=== PATIENT | female | born 1980 | race Caucasian/White ===

== ENCOUNTER 2019-11-30 16:35 | Emergency (ER) | payer OTHER, SELFPAY ==
[2019-11-30 16:55] VITALS: BP 109/68; PULSE 74; RESP 18; TEMP 37.1; O2SAT 98
--- NOTE | 2019-11-30 17:03 | ED.SKABFB ---
HPI - Skin/Abscess/Foreign Bdy General Chief complaint: Skin/Abscess/Foreign Body Stated complaint: sore on r/arm Time Seen by Provider: 11/30/19 16:53 Source: patient and RN notes reviewed Mode of arrival: ambulatory Limitations: no limitations History of Present Illness HPI narrative: Patient presents today complaining of a lump to her right forearm x3 months. Reports intermittent pain, and pain occasionally radiates to the forearm and wrist. Injury. Denies numbness or tingling in the arm or hand. She has tried no [id number] interventions for symptoms prior to arrival. complaint: lesion Related Data Allergies Allergy/AdvReac Type Severity Reaction Status Date / Time codeine Allergy Mild Nausea and Unverified 11/30/19 16:57 Vomiting Review of Systems Review of Systems: Narrative: CONSTITUTIONAL: Denies body aches, fever, chills, or sweats. EYES: Denies visual changes, redness, or discharge. ENT: Denies rhinorrhea, congestion, sore throat, or otalgia. CARDIOVASCULAR: Denies chest pain, palpitations, or edema. RESPIRATORY: Denies cough or dyspnea. GASTROINTESTINAL: Denies abdominal pain, nausea, vomiting, or diarrhea. GENITOURINARY: Denies dysuria or hematuria. SKIN: Denies rash, itching, or wounds. Lump to right forearm MUSCULOSKELETAL: Denies back pain, joint pain, or myalgia. NEUROLOGIC: Denies headache, numbness, tingling, or weakness. PSYCH: Denies depression or anxiety. [facility] Family History Family History (Updated 12/02/16 @ 10:03 by DOCTOR UNKNOWN) Mother Patient's mother is in good health Father Patient's father is in good health Other Diabetes mellitus Family history of cardiovascular disease Hypertension Social History Social History Smoking status: Never smoker Second hand tobacco smoke exposure: No Alcohol intake: current Comments At time of signature, I have reviewed and agree with nursing past medical, surgical, social and family history unless otherwise noted. Please see nursing chart for further information. There is no relevant family history pertinent to the presenting complaint Exam Narrative: Exam Narrative: GENERAL: Well-appearing, well-nourished, and in no acute distress. HEAD: Normocephalic, atraumatic. EYES: EOMI. No redness or drainage. Conjunctivae normal. ENT: Mucous membranes pink and moist. NECK: Normal AROM. CHEST: No respiratory distress. EXTREMITIES: Normal range of motion. No edema. 1cm firm, immovable nodule to the anterior aspect of the right proximal forarm, just distal to the antecubital fossa. No redness or edema. Nontender. Distal sensation intact. Capillary refill normal. No color change. SKIN: Warm, dry, no rash. NEURO: No focal deficits. Alert and oriented x3. Gait steady. PSYCH: Normal affect. No signs of depression or anxiety. Course Course Emergency Course: Discussed with patient that since the area does not seem to be obsessed, but that it is movable and firm, I recommend that she follow-up with either her PCP or hog ringer for further evaluation. Vital Signs Vital signs: Vital Signs Temperature 98.8 F 11/30/19 16:55 Pulse Rate 74 11/30/19 16:55 Respiratory Rate 18 11/30/19 16:55 Blood Pressure 109/68 11/30/19 16:55 Pulse Oximetry 98 11/30/19 16:55 Temperature 98.8 F 11/30/19 16:55 Pulse Rate 74 11/30/19 16:55 Respiratory Rate 18 11/30/19 16:55 Blood Pressure 109/68 11/30/19 16:55 Pulse Oximetry 98 11/30/19 16:55 Reviewed MDM - Skin/Abscess/Foreign Bdy Differential Diagnosis Differential diagnosis: Likely abscess of skin or subcutaneous tissue, cellulitis and other (Epidermoid cyst, lipoma, ganglion cyst, sebaceous cyst) Critical Care Time Critical Care Time Critical Care Time: No Discharge Plan Discharge Clinical Impression: Cyst Patient Disposition: Home, Self-Care Condition: Stable Instructions: Cyst (ED) Additional Instructions: The cause of y
== END 2019-11-30 17:06 | disposition home or self-care (01) ==
PROVIDERS: Emergency Provider Nurse Practitioner; PCP Family Medicine
DX: L72.9 Follicular cyst of the skin and subcutaneous tissue, unspecified (principal); J45.909 Unspecified asthma, uncomplicated
CPT/HCPCS: 99211; G0463

== ENCOUNTER 2020-01-27 11:10 | Outpatient (CLI) | payer OTHER, SELFPAY ==
--- NOTE | ~2020-01-27 | US_ITS ---
US soft tissue UE RT 01/27/2020 12:42 Indication: Localized swelling with palpable soft tissue nodule Procedure: High-resolution ultrasound of the right antecubital fossa Comparison: No prior studies for comparison. Findings: In the area of palpable concern there is an oval circumscribed hypoechoic mass with paralle l orientation, no significant posterior features or internal vascularity. This mass measures 9 x 8 x 6 mm. Impression: 1: Oval circumscribed hypoechoic 9 mm mass right antecubital fossa with benign features, likely a cys t sebaceous cyst. Recommend follow-up ultrasound as clinically warranted. If there is a history of ma lignancy, consider percutaneous biopsy. Reviewed, dictated and finalized at location A. Impression: 1: Oval circumscribed hypoechoic 9 mm mass right antecubital fossa with benign features, likely a cyst sebaceous cyst. Recommend follow-up ultrasound as clini gomez warranted. If there is a history of malignancy, consider percutaneous bio psy.
== END 2020-01-27 11:11 | disposition home or self-care (01) ==
LOC: ANHIMG 11:13
PROVIDERS: PCP Family Medicine; Visit Provider Surgery
DX: R22.31 Localized swelling, mass and lump, right upper limb (principal)
CPT/HCPCS: 76882

== ENCOUNTER 2020-09-18 08:04 | Outpatient (NON) | payer OTHER, SELFPAY ==
[2020-09-18 18:45] LABS: SARS-CoV-2 RNA PCR Negative
== END 2020-09-18 08:05 ==
LOC: ANHCOVIDDT 08:05
PROVIDERS: PCP Family Medicine; Visit Provider Physician Assistant
DX: Z20.828 Contact with and (suspected) exposure to other viral communicable diseases (principal); R05 Cough
CPT/HCPCS: 87635; C9803; U0003

== ENCOUNTER → 2021-05-28 03:02 | Outpatient (CLI) | payer OTHER, SELFPAY ==
[2021-05-28 19:51] LABS: SARS-CoV-2 RNA PCR Negative
== END ==
PROVIDERS: PCP Family Medicine; Visit Provider Obstetrics & Gynecology
DX: Z01.812 Encounter for preprocedural laboratory examination (principal); Z20.822 Contact with and (suspected) exposure to COVID-19
CPT/HCPCS: C9803; U0003; U0005

== ENCOUNTER 2021-05-28 08:31 | Outpatient (CLI) | payer OTHER, SELFPAY ==
[2021-05-28 09:24] LABS: Basophils Absolute Auto 0.1 K/mm3 (0.0-0.1); Basophils Percent Auto 1.1 % (0.2-1.2); Eosinophils Absolute Auto 0.5 K/mm3 (0-0.3); Eosinophils Percent Auto 10.5 % (0-4.4); Hematocrit 31.7 % (37.0-47.0); Hemoglobin 8.9 g/dL (12.0-15.0); Immature Granulocyte Absolute 0.01 K/mm3 (0.00-0.031); Immature Granulocyte Percent A 0.2 % (0-0.5); Immature Platelet Fraction Pct 5.7 % (0.9-11.2); Lymphocytes Absolute Auto 1.45 K/mm3 (0.9-3.2); Lymphocytes Percent Auto 31.6 % (18.3-44.2); Mean Corpuscular HGB Conc 28.1 g/dl (32-36); Mean Corpuscular Hemoglobin 19.3 pg (26-34); Mean Corpuscular Volume 68.9 fl (80-100); Mean Platelet Volume 10.8 fl (7.4-10.4); Monocytes Absolute Auto 0.4 K/mm3 (0.1-0.6); Monocytes Percent Auto 7.8 % (2.6-8.5); Neutrophils Absolute Auto 2.2 K/mm3 (1.3-6.7); Neutrophils Percent Auto 48.8 % (45.5-73.1); Platelet Count Result 288 k/mm3 (150-375); Red Cell Distribution Width 18.1 % (11.5-14.5); White Blood Count 4.6 K/mm3 (4.5-10.0)
== END 2021-05-28 08:32 | disposition home or self-care (01) ==
PROVIDERS: PCP Family Medicine; Visit Provider Obstetrics & Gynecology
DX: N85.2 Hypertrophy of uterus (principal)
CPT/HCPCS: 36415; 85025; 85055; 86850; 86900; 86901

== ENCOUNTER 2021-05-31 00:01 | Day surgery (SDC) | payer OTHER, SELFPAY ==
[2021-05-24 10:17] VITALS: BMI 20.3
--- NOTE | 2021-05-29 07:53 | PM.IMHP ---
H&P: HPI History of Present Illness Date/Time: 05/29/21 07:53 40-year-old 2 para 2 admitted for robotic total vaginal hysterectomy and bilateral salpingectomy secondary to uterine prolapse and large uterus. Risks and benefits reviewed including min exclusive of , aspiration pneumonia bleeding, transfusion, perforation injury to bowel, bladder, ureters, or other internal organs with need for open laparotomy. She received the ACOG handout entitled hysterectomy as well as the de Haley handout. She had all questions answered and asked to proceed Chief Complaint: pelvic pain and uterine prolapse Review of Systems Review of Systems: All systems reviewed & are unremarkable except as noted in HPI and below PMFSH Past Medical History Medical History Asthma Viral meningitis Surgical History Surgical History H/O knee surgery H/O microdiscectomy l5,f1 Family History Family History Mother Patient's mother is in good health Father Patient's father is in good health Skin cancer Sibling Seizure Grandparent Diabetes mellitus COPD (chronic obstructive pulmonary disease) Heart disease Cancer Other Family history of cardiovascular disease Hypertension Social History Social History Smoking status: Never smoker Second hand tobacco smoke exposure: No Alcohol intake: current Substance use: never 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 Spiritual care concerns: No Meds Home Medications and Allergies Home Medications Medication Instructions Recorded Confirmed Type albuterol sulfate 90 mcg/actuation See Rx Instructions .ROUTE 02/12/21 05/24/21 Rx aerosol inhaler .COMPLEX #8.5 gm montelukast [Singulair] 10 mg PO HS 05/24/21 05/24/21 History Allergies Allergy/AdvReac Type Severity Reaction Status Date / Time codeine Allergy Mild Nausea and Verified 05/24/21 10:16 Vomiting Exam Const: General: no acute distress Eyes: General: appearance normal, both eyes and all related structures Neck: Neck: supple and no JVD Thyroid: thyroid normal Resp: Effort & Inspection: normal respiratory effort Auscultation: clear to auscultation bilaterally Cardio: Rate: regular rate Rhythm: regular rhythm GI: Inspection: non-distended GI Palp: Yes Soft to palpation, No Tenderness to palpation present (GI) and No Guarding due to palpation present (GI) Auscultation: normal bowel sounds : External Female Exam: normal external appearance Speculum Exam - Vagina: normal appearance of the vagina Speculum Exam - Cervix: normal appearance of the cervix and Cervical os closed Bimanual exam- vagina & uterus: Uterus displaced ( second-degree prolapse is present) Bimanual Exam- Adnexa, other: normal adnexae Skin: General skin exam: no rashes or lesions noted Extrem: General: normal to inspection and no edema Psych: Mental Status: mental status grossly normal Affect: normal affect Assessment and Plan Additional Plan impression: Uterine prolapse and pelvic pain Plan: Robotic total vaginal hysterectomy and bilateral salpingectomy
--- NOTE | 2021-05-30 10:49 | P.PNAN_ITS ---
Anes - Initial Pre Proc Eval Procedure: Operation Date: 05/31/21 07:30 Proposed Procedures p Robotic Assisted Total Vaginal Hysterectomy, with Bialteral Salpingectomy - Rafael Prado MD Date/Time: 05/30/21 10:49 Surgeon: Rafael Prado MD Pre Op Diagnosis: pelvic pain, irregular bleeding , enlarged uterus Patient Data Age: 40 Gender: F Height: 1.7 m Weight: 59 kg Allergies Allergy/AdvReac Type Severity Reaction Status Date / Time codeine AdvReac Mild Nausea and Verified 05/31/21 06:41 Vomiting Home Medications Medication Instructions Recorded Confirmed Type albuterol sulfate 90 mcg/actuation See Rx Instructions .ROUTE 02/12/21 05/31/21 Rx aerosol inhaler .COMPLEX #8.5 gm montelukast [Singulair] 10 mg PO HS 05/24/21 05/31/21 History Patient hx anesthesia problems: none Family hx anesthesia problems: none PMFSH Past Medical History Medical History Asthma Viral meningitis Surgical History Surgical History H/O knee surgery H/O microdiscectomy l5,f1 Family History Family History Mother Patient's mother is in good health Father Patient's father is in good health Skin cancer Sibling Seizure Grandparent Diabetes mellitus COPD (chronic obstructive pulmonary disease) Heart disease Cancer Other Family history of cardiovascular disease Hypertension Social History Social History Smoking status: Never smoker Second hand tobacco smoke exposure: No Alcohol intake: current Substance use: never Living arrangements: with family 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 Questions were solicited and answers provided to the satisfaction of the patient/family/POA.
[2021-05-31] VITALS (11 sets, daily range): BP systolic 89–113; BP diastolic 45–67; PULSE 58–82; RESP 12–19; TEMP 36.3–37.1; O2SAT 98–100; BMI 21.4
[2021-05-31] MEDS: ACETAMINOPHEN 500 MG TABLET 1000 MG PO (06:54)
[2021-05-31] MEDS: LACTATED RINGERS 1,000 ML 30 ML IV CONT ×2 (06:54→08:47)
[2021-05-31] MEDS: KETOROLAC 15 MG/ML VIAL (*BKC) IV PUSH (06:54)
--- NOTE | 2021-05-31 07:08 | WPDHPUPDATE1 ---
History and Physical Update Update Date/Time: 05/31/21 07:08 History and Physical has been reviewed, including an updated exam of the patient. There are NO changes in the patient's condition. Risks, benefits, and alternatives have been discussed and questions answered. Patient agrees to proceed with procedure.
[2021-05-31] MEDS: ceFAZolin 2 GM/D5W 50 ML 2 GM/50 ML BAG IVPB (07:27)
--- NOTE | 2021-05-31 08:39 | W.PM.PROC2 ---
Procedure Note - Detailed Date of Procedure 05/31/21 Pre-op Diagnosis pelvic pain, irregular bleeding , enlarged uterus Post-op Diagnosis same Procedure Performed Robotic total vaginal hysterectomy bilateral salpingectomy Surgeon Rafael Prado MD Anesthesia general Indications This is a 40 year female uterine prolapse enlarged uterus Findings Uterine prolapse/enlarged uterus/normal-appearing ovaries tubes. A small irregularity was seen the small and photo documented. No general surgeon was present and will be curb sided to look at the picture when available Description of Procedure The patient was prepped draped in the normal sterile fashion placed in the dorsal lithotomy position. Under excellent general endotracheal anesthesia weighted speculum placed in posterior fornix vagina. Anterior lip of the cervix was grasped with a single-tooth tenaculum the uterus sounded to 10cm. Serial dilatation with fragmented dilators performed followed passes the 8. ANGEL and the 3. And half cold cup. Next the 16 [place] catheter bladder and drained of clear urine. The weighted speculum and the other instruments removed and the gloves were changed. A supraumbilical incision made the Veress needle passed in the abdomen. The abdomen filled with CO2 gas 15mmmmmercury. The 8mm trocar advanced in the abdomen. The downside visualized no injury seen. Patient placed in Trendelenburg and right lateral quadrant incisions made the 8mm trocars advanced under direct visualization assuring no injury. Right upper quadrant incision made the 8 8mm trocar advanced under direct visualization again assuring no injury. The robot was docked Attention was turned to the corporate counsel. The round ligament on the left was grasped, burned, cut anterior bladder flap was formed by sharply dissecting the peritoneum and reflecting the bladder caudally away from the cervix and uterus the opposite round ligament was clamped, burned, cut. Next the left fallopian tube was sharply dissected away from the ovary and left at its uterine base to be removed with the specimen. In like fashion the right fallopian tube was cauterized and dissected away and left to the uterine base. Next the utero-ovarian ligament on the left was clamped, burned, cut this was brought to the level of previously cut round ligament. This conserve the left ovary. Conserving the right ovary the utero-ovarian ligament was clamped, burned, cut and brought to the level of previous cut round ligament. The cardinal broad ligaments on the left were then serially skeletonized they were clamped burned and cut and brought down the lateral edge of the cervix until the large tortuous uterine vessels could be seen. These were individually clamped, burned, cut. In like fashion the cardinal broad ligaments on the right were serially skeletonized. These were clamped, burned, cut and brought down the lateral edge of the cervix and uterus until uterine vessels could be seen on the right. These large tortuous vessels were individually clamped, burned, cut and blanching the uterus was noted. A colpotomy incision was made in the cervix uterus and tubes removed through the vagina. The vagina was closed with continuous running 0V lock from lateral edge to lateral edge back to the midline. Irrigation undertaken to clear blood loss estimated at25cc. Spencer term was placed on the raw surface area it was noted on the small bowel that there was a small excrescence excrescence that appeared fairly benign attempts were made to reach general surgeon but none were available. Photo documentation was undertaken and curbside consult will be undertaken. The gas was removed from the abdomen. The trocars were removed after the robot was undocked. The incisions closed with 4 Monocryl and glue. The patient went to recovery in satisfactory condition. All sponge, needle, instrument counts were correct. There were no immediate complications Estimated Blood Loss
[2021-05-31] MEDS: fentaNYL CITRATE INJ (*CRX) 100 MCG/2 ML VIAL 25 MCG IV PUSH ×6 (08:58→09:19)
[2021-05-31] MEDS: HYDROmorphone HCL INJ (*CRX) 1 MG/ML SYR 0.5 MG IV PUSH ×2 (09:27→09:34)
[2021-05-31] MEDS: DEXTROSE 5%/LACTATED RINGERS 1,000 ML 125 ML IV CONT (10:21)
[2021-05-31] MEDS: KETOROLAC 30 MG/ML VIAL (*BKC) IV PUSH ×3 (11:20→23:28)
[2021-05-31] MEDS: ENOXAPARIN 40 MG/0.4 ML SYRINGE SUB-Q (11:21)
[2021-05-31] MEDS: HYDROcodone/acetaminophen (*CRX) 5-325 MG TABLET 1 TAB PO ×3 (13:26→20:42)
[2021-05-31] MEDS: DOCUSATE SODIUM 100 MG CAPSULE PO (16:30)
[2021-05-31] MEDS: SIMETHICONE 80 MG TAB.CHEW PO ×2 (16:31→20:42)
--- NOTE | 2021-05-31 23:25 | PC.NURSE ---
Per patient she took 2 puffs of her own Albuterol inhaler for allergies.
[2021-06-01 00:10] VITALS: BP 92/51; PULSE 72; RESP 16; O2SAT 100
[2021-06-01 03:50] VITALS: BP 92/53; PULSE 64; RESP 16; TEMP 36.7; O2SAT 99
[2021-06-01 04:46] LABS: Basophils Percent Auto 0.4 % (0.2-1.2); Eosinophils Absolute Auto 0.2 K/mm3 (0-0.3); Eosinophils Percent Auto 2.8 % (0-4.4); Hematocrit 26.6 % (37.0-47.0); Hemoglobin 7.4 g/dL (12.0-15.0); Immature Granulocyte Absolute 0.03 K/mm3 (0.00-0.031); Immature Granulocyte Percent A 0.4 % (0-0.5); Lymphocytes Absolute Auto 1.54 K/mm3 (0.9-3.2); Lymphocytes Percent Auto 18.6 % (18.3-44.2); Mean Corpuscular HGB Conc 27.8 g/dl (32-36); Mean Corpuscular Hemoglobin 19.5 pg (26-34); Mean Platelet Volume 11.4 fl (7.4-10.4); Monocytes Absolute Auto 0.7 K/mm3 (0.1-0.6); Monocytes Percent Auto 8.7 % (2.6-8.5); Neutrophils Absolute Auto 5.8 K/mm3 (1.3-6.7); Neutrophils Percent Auto 69.1 % (45.5-73.1); Platelet Count Result 229 k/mm3 (150-375); Red Cell Distribution Width 17.9 % (11.5-14.5); White Blood Count 8.3 K/mm3 (4.5-10.0)
[2021-06-01] MEDS: IBUPROFEN 600 MG TABLET PO (05:35)
--- NOTE | 2021-06-01 07:05 | P.DS_ITS ---
DS: Admitting Diagnosis Discharge Date 06/01/2021 Admitting Diagnosis Pelvic pain/ uterine prolapse DS: Summary Hospital Course Hospital Course: patient admitted for robotic total vaginal hysterectomy bilateral salpingectomy. She underwent an unremarkable procedure. Hospital course was unremarkable. She remained afebrile. She was up, voiding without difficulty ambulating generally without complaints Time Spent with Patient Time attestation: Total time spent providing and/or coordinating discharge services: Exam Const: General: no acute distress Eyes: General: appearance normal, both eyes and all related structures Neck: Neck: supple and no JVD Thyroid: thyroid normal Resp: Effort & Inspection: normal respiratory effort Auscultation: clear to auscultation bilaterally Cardio: Rate: regular rate Rhythm: regular rhythm GI: Inspection: non-distended GI Palp: Yes Soft to palpation, No Tenderness to palpation present (GI) and No Guarding due to palpation present (GI) Auscultation: normal bowel sounds Skin: General skin exam: no rashes or lesions noted Extrem: General: normal to inspection and no edema Psych: Mental Status: mental status grossly normal Affect: normal affect DS: Data Data Completed and Pending Pending studies at discharge: Pending at discharge 05/31/21 08:01 Surgical [PTH] Routine Labs on day of discharge: Labs from last 24 hours 06/01/21 03:51 WBC 8.3 RBC 3.80 L Hgb 7.4 L Hct 26.6 L MCV 70.0 L MCH 19.5 L MCHC 27.8 L RDW 17.9 H Plt Count 229 MPV 11.4 H Immature Gran % (Auto) 0.4 Neut % (Auto) 69.1 Lymph % (Auto) 18.6 [place] % (Auto) 8.7 H Eos % (Auto) 2.8 Baso % (Auto) 0.4 Lymph # (Auto) 1.54 [place] # (Auto) 0.7 H Eos # (Auto) 0.2 Baso # (Auto) 0.0 Abs Immat Gran (auto) 0.03 Absolute Neuts (auto) 5.8 Absolute Nucleated RBC 0.0 Nucleated RBC % 0.0 Discharge Plan Discharge Attending physician on discharge: Rafael Prado Discharging Clinician: Rafael Prado Patient Disposition: Home, Self-Care Activity: may shower, no straining and pelvic rest Diet: heart healthy Wound Care Instructions: follow printed instructions Stand Alone Forms: General Discharge Instructions Follow-up/Referrals: Rafael Prado MD [Physician] - Discharge Medications: New hydrocodone-acetaminophen 5-325 mg tablet 1 tablet PO Q4H PRN (Reason: pain) Qty: 30 RF: 0 Continued montelukast [Singulair] 10 mg tablet 10 mg PO HS RF: 0 albuterol sulfate 90 mcg/actuation HFA aerosol inhaler See Rx Instructions .ROUTE .COMPLEX Qty: 8.5 RF: 5 Attending physician on admission: Rafael Prado Condition: Stable
--- NOTE | 2021-06-01 07:08 | PM.GYNPNOP ---
INFORMATICS SPECIALIST - A/P Postoperative Procedures: Procedures Operation Date: 05/31/21 07:30 Actual Procedure Side Surgeon p Robotic Assisted Total Vaginal Hysterectomy with Bilateral Salpingectomy Bilateral Rafael Prado MD Postoperative status: doing well Postoperative plan: routine post-op care, advance diet and discharge Time Spent With Patient Time: Total time spent is greater than 50% in coordination of care (as documented) at patient's floor/unit and/or counseling patient: Time with patient: less than 15 minutes INFORMATICS SPECIALIST- PN:Subj Post-Op Subjective Date/time seen: 06/01/21 07:08 Subjective: patient reports feeling better and patient has no complaints Review of Systems Review of Systems: All systems reviewed & are unremarkable except as noted in HPI and below Exam Const: General: no acute distress Eyes: General: appearance normal, both eyes and all related structures Neck: Neck: supple and no JVD Thyroid: thyroid normal Resp: Effort & Inspection: normal respiratory effort Auscultation: clear to auscultation bilaterally Cardio: Rate: regular rate Rhythm: regular rhythm GI: Inspection: non-distended GI Palp: Yes Soft to palpation, No Tenderness to palpation present (GI) and No Guarding due to palpation present (GI) Auscultation: normal bowel sounds : General: Yes bladder normal to palpation External Female Exam: normal external appearance Speculum Exam - Vagina: normal vaginal discharge and No vaginal bleeding Speculum Exam - Cervix: nontender Bimanual exam- vagina & uterus: bladder normal to palpation and No Cervical tenderness present OB/external & speculum: No vaginal bleeding Skin: General skin exam: no rashes or lesions noted Extrem: General: normal to inspection and no edema Psych: Mental Status: mental status grossly normal Affect: normal affect INFORMATICS SPECIALIST - PN: Obj Data Vital Signs Vital Signs: Vital Signs - 24 hr 05/31/21 08:47 05/31/21 09:00 05/31/21 09:15 Temperature 97.4 F L Pulse Rate 79 73 61 Respiratory Rate 19 14 12 Blood Pressure 113/52 L 100/45 L 108/57 L Pulse Oximetry 100 100 100 05/31/21 09:35 05/31/21 09:49 05/31/21 10:05 Temperature 97.5 F L Pulse Rate 58 L 66 72 Respiratory Rate 12 14 16 Blood Pressure 111/67 104/63 109/56 L Pulse Oximetry 99 100 98 05/31/21 12:37 09/10/21 15:45 05/31/21 18:30 Temperature 98.2 F 98.7 F 98.8 F Pulse Rate 64 69 75 Respiratory Rate 16 16 16 Blood Pressure 109/61 105/51 L 94/45 L Pulse Oximetry 100 100 99 05/31/21 23:15 06/01/21 00:10 06/01/21 03:50 Temperature 98.2 F 98.0 F Pulse Rate 69 72 64 Respiratory Rate 18 16 16 Blood Pressure 89/49 L 92/51 L 92/53 L Pulse Oximetry 99 100 99 Intake/Output Intake/Output: Intake & Output 05/29/21 05/30/21 05/31/21 06/01/21 23:59 23:59 23:59 23:59 Intake Total 2400 400 Output Total 1965 500 Balance 435 -100 Meds/Results Medications: Active Medications Generic Name Dose Route Start Last Admin Trade Name Freq PRN Reason Stop Dose Admin Hydrocodone Bitart/Acetaminophen 1 tab 05/31/21 09:53 05/31/21 20:42 Hydrocodone/Acetaminophen (*Crx) 5-325 Mg Tablet PO 1 tab Q3H PRN Administration Pain Rated 5 or Less Hydrocodone Bitart/Acetaminophen 1 tab 05/31/21 09:53 Hydrocodone/Acetaminophen (*Crx) 10-325 Mg Tablet PO Q3H PRN Pain Rated 6 or Greater Docusate Sodium 100 mg 05/31/21 09:53 05/31/21 17:54 Docusate Sodium 100 Mg Capsule PO Not Given BID PATRICE Enoxaparin Sodium 40 mg 05/31/21 09:53 05/31/21 11:21 Enoxaparin 40 Mg/0.4 Ml Syringe SUB-Q 40 mg DAILY PATRICE Administration Dextrose/Lactated Ringer's 1,000 mls @ 125 mls/hr 05/31/21 09:53 05/31/21 18:30 Dextrose 5%/Lactated Ringers IV CONT Infused .Q8H PATRICE Infusion Ibuprofen 600 mg 05/31/21 09:53 06/01/21 05:35 Ibuprofen 600 Mg Tablet PO 600 mg Q6H PRN Administration Cramping Ketorolac Tromethamine 30 mg 05/31/21 09:53 05/31/21 23:28
[2021-06-01] MEDS: SIMETHICONE 80 MG TAB.CHEW PO (07:36)
[2021-06-01 07:46] VITALS: BP 82/42; PULSE 71; RESP 18; TEMP 36.8
[2021-06-01] MEDS: HYDROcodone/acetaminophen (*CRX) 5-325 MG TABLET 1 TAB PO (09:27)
== END 2021-06-01 09:45 | disposition home or self-care (01) ==
LOC: ANHSURGERY 06:05 → ANHOB2 09:55
PROVIDERS: PCP Family Medicine; Visit Provider Obstetrics & Gynecology
PROC: (CPT 58552; principal; 2021-05-31 07:30)
DX: R10.2 Pelvic and perineal pain (principal); N81.2 Incomplete uterovaginal prolapse; N93.9 Abnormal uterine and vaginal bleeding, unspecified; J45.909 Unspecified asthma, uncomplicated; Z79.51 Long term (current) use of inhaled steroids; Z86.61 Personal history of infections of the central nervous system
CPT/HCPCS: 58552; S2900; 36415; 85025; 85055; 86850; 86900; 86901; 88307; 99199; A9270; C9803; J0690; J1100; J1170; J1650; J1885; J2250; J2405; J2704; J2710; J3010; J7030; J7120; J7121; U0003; U0005

== ENCOUNTER 2024-11-20 06:53 | Emergency (ER) | payer OTHER, SELFPAY ==
[2024-11-20 06:57] VITALS: BP 125/85; PULSE 78; RESP 18; TEMP 36.6; O2SAT 98
--- NOTE | 2024-11-20 07:15 | ED.GENADULT ---
HPI - General Adult General Chief complaint: Headache Stated complaint: headache since 0200 Time Seen by Provider: 11/20/24 06:57 History of Present Illness HPI narrative: Patient is a 44-year-old female who presents ER with headache. Began at 2:00 a.m.. History of migraines. Constant pressure over the forehead it radiating to the back. Typically her headache waxes and wanes in intensity and this is not improving. She took neuro tach without improvement. She has had vomiting with urinary incontinence. No urinary frequency urgency or dysuria. No body aches. No fevers or chills or sweats. No known sick contacts. She had 1 glass of wine last night. Unable to identify any other possible triggers. Related Data Allergies Allergy/AdvReac Type Severity Reaction Status Date / Time codeine AdvReac Mild Nausea and Verified 11/20/24 06:57 Vomiting surgical glue Allergy Severe Hives Uncoded 10/05/24 09:13 Review of Systems Review of Systems: All systems reviewed & are unremarkable except as noted in HPI and below Constitutional: Constitutional: Reports no additional constitutional complaints Eyes: Eyes: Reports no additional eye complaints ENT: Reports system reviewed and no additional complaints, except as documented Genitourinary: Genitourinary: Reports no additional female genitourinary complaints [facility] Past Medical History Medical History Upper respiratory tract infection Mild intermittent asthma without complication Epigastric pain Chronic rhinitis Chronic constipation Viral meningitis Asthma Surgical History Surgical History H/O bilateral salpingectomy History of robot-assisted laparoscopic hysterectomy H/O knee surgery H/O microdiscectomy l5,f1 Family History Family History Mother Patient's mother is in good health Father Patient's father is in good health Skin cancer Sibling Seizure Grandparent Diabetes mellitus COPD (chronic obstructive pulmonary disease) Heart disease Cancer Other Family history of cardiovascular disease Hypertension Social History Social History Smoking status: Never smoker Second hand tobacco smoke exposure: No Alcohol intake: current Substance use: never Lack of Transportation: No Lack of Food: Never True Current Housing: I Have Housing Concerned About Future Housing: No Difficulty Paying Gas/Electric Bills: No Difficulty Paying for Meds: No Currently Unemployed: No Education: Associate Degree Difficulty w/ Childcare or Family Care: No Living arrangements: with family Occupation/Education: 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 HEAD: Normocephalic, atraumatic. EYES: PERRL and EOMI. ENT: Mucous membranes moist. CHEST: Clear to auscultation. No respiratory distress. HEART: Regular rate and rhythm. Normal peripheral pulses. ABDOMEN: Soft, nontender, nondistended. EXTREMITIES: Normal range of motion. No edema. NEURO: Alert and oriented x3. PSYCH: Normal mood and affect. Course Course Emergency Course: Headache aborted with IV fluids/Reglan/Benadryl/Toradol. Discharge home with supportive care. Vital Signs Vital signs: Vital Signs Temperature 97.8 F 11/20/24 06:57 Pulse Rate 78 11/20/24 06:57 Respiratory Rate 18 11/20/24 06:57 Blood Pressure 125/85 11/20/24 06:57 Pulse Oximetry 98 11/20/24 06:57 Temperature 97.9 F 11/20/24 08:00 Pulse Rate 72 11/20/24 08:00 Respiratory Rate 16 11/20/24 08:00 Blood Pressure 116/61 11/20/24 08:00 Pulse Oximetry 100 11/20/24 08:00 Medical Decision Making Vital Signs Vital Signs: Vital Signs Temperature 97.8 F 11/20/24 06:57 Pulse Rate 78 11/20/24 06:57 Respiratory Rate 18 11/20/24 06:57 Blood Pressure 125/85 11/20/24 06:57 Pulse Oximetry 98 11/20/24 06:57 Temperature 97.9 F 11/20/24 08:00 Pulse Rate 72 11/20/24 08:00 Respiratory Rate 16 11/20/24 08:00 Blood Pressure 116/61 11/20/24 08:00 Pulse Oximetry 100 11/20/24 08:00 Discharge Plan Discharge Clinical Impression: Migraine Patient Disposition: Home, Self-Care Condition: Stable Instructions: Migraine Headache (ED) Additional Instructions: Try to stay well hydrated at home. Please return to the emergency department if you develop worsening of your headache or a new headache which is severe, associated with vision changes, associated with neck stiffness or fever, or if it is different from any other headache that you have had before. Return to the emergency department if you develop numbness, weakness or tingling or problems with coordination, or if you develop severe nausea and vomiting and are unable to keep down fluids at home. If you use Reglan for a migraine add 1 tablet of 25 mg Benadryl as well as 600 mg of ibuprofen. Patient Language: Costa Rican Prescriptions: New metoclopramide HCl [Reglan] 10 mg tablet 10 mg PO Q6H PRN (Reason: nausea and vomiting) Qty: 7 0RF No Action fluticasone furoate-vilanterol [Breo Ellipta] 100-25 mcg/dose blister with device 1 inh inhalation DAILY Qty: 60 0RF albuterol sulfate 90 mcg/actuation HFA aerosol inhaler See Rx Instructions .ROUTE .COMPLEX Qty: 8.5 5RF Dose Instruction: INHALE 1 PUFF BY MOUTH EVERY 4 HOURS NEEDED Rx Instructions: INHALE 1 PUFF BY MOUTH EVERY 4 HOURS NEEDED Nurtec ODT 75 mg tablet,disintegrating 75 mg PO DAILY PRN (Reason: migraine headache) Qty: 10 6RF Rx Instructions: as a single dose Follow-up/Referrals: Pamela Moulton MD [Primary Care Provider] - 1 Week
[2024-11-20] MEDS: SODIUM CHLORIDE 0.9% IV 1,000 ML 999 ML IV CONT (07:24)
[2024-11-20] MEDS: KETOROLAC 30 MG/ML VIAL (*BKC) IV PUSH (07:25)
[2024-11-20] MEDS: diphenhydrAMINE HCl INJ 50 MG/ML VIAL 25 MG IV PUSH (07:25)
[2024-11-20] MEDS: METOCLOPRAMIDE HCL INJ 10 MG/2 ML VIAL IV PUSH (07:25)
[2024-11-20 08:00] VITALS: BP 116/61; PULSE 72; RESP 16; TEMP 36.6; O2SAT 100
[2024-11-20 09:00] VITALS: BP 118/78; PULSE 70; RESP 16; TEMP 36.4; O2SAT 100
[2024-11-20 09:35] VITALS: BP 112/68; PULSE 70; RESP 16; TEMP 36.6; O2SAT 100
== END 2024-11-20 09:35 | disposition home or self-care (01) ==
PROVIDERS: Emergency Provider Emergency Medicine; PCP Family Medicine
DX: G43.909 Migraine, unspecified, not intractable, without status migrainosus (principal); J45.20 Mild intermittent asthma, uncomplicated; Z90.79 Acquired absence of other genital organ(s); Z90.710 Acquired absence of both cervix and uterus
CPT/HCPCS: 96361; 96374; 96375; 99284; J1200; J1885; J2765; J7030

== ENCOUNTER 2024-12-04 13:37 | Emergency (ER) | payer OTHER, SELFPAY ==
--- NOTE | ~2024-12-04 | XR_ITS ---
XR toe 1st LT min 2V Ordering provider: SHANNA Feliciano History: . dropped bottle of wine on 1st toe last night. . Comparison: None. FINDINGS: BONES: Nondisplaced fracture of the midshaft of the distal phalanx of the left big toe. JOINT SPACES: Normal. SOFT TISSUES: Normal. IMPRESSION: Fracture of the distal phalanx of the left big toe. Reviewed, dictated and finalized at location A.
--- OUTSIDE RECORDS SUMMARY | 2024-12-04 13:39 | XMS_ITS ---
Author Organization [facility] Address [address] [place] [address] Care Team Providers Care Cut Off Saw Operator Name Role Phone Pamela Moulton Primary Care Provider Carlotta Gallegos Unavailable [phone] REASON FOR VISIT Asthma follow-up Encounters Encounter Location Date Provider Diagnosis [facility] [address] [facility] [address] [place] [address] 09/28/2024 Carlotta Thrasher Plan Of Treatment Next Appt Details Provider Name:Carlotta baptiste, 01/25/2025 04:00:00 PM, [facility] [address], [place], [address], Progress Notes * Mami ANNE ADOB: [birth year] (44 yo F)Acc No.[id number]:09/28/2024 Asthma F/U Patient: Clementina Mami VILLARREAL Provider: India Thrasher MD :1980 A ge:44 Y S ex:Female Date:09/28/2024 Address:[address] [place] [address] [place], [id number] Pcp:Pamela Moulton Subjective: * Chief Complaints: * 1 . Asthma follow-up. * Medical History: Objective: * Vitals: Assessment: Plan: * Treatment: * Billing Information: * Visit Code: * Procedure Codes: * Electronic signature of Alana Thrasher MD on 12/04/2024 at 01:39 PM CDT Sign off status: Pending * Provider: India Thrasher MD Date: 0 09/28/2024 Generated for Serena ramirez/Ruby/Lester on: 0 12/04/2024 01:39 PM CDT
--- OUTSIDE RECORDS SUMMARY | 2024-12-04 13:39 | XMS_ITS | Patient Health Summary ---
Author Organization [facility] Address [address] [place] [address] Care Team Providers Care Director Of Business Continuity Name Role Phone Pamela Moulton MD Primary Care Provider [phone] Note from [facility],non-owned Affiliates and Associated Physician Practices is amultiple site organization consisting of ambulatory clinics and hospital sitesin [place], [place], [place] and [place]. This disclosure is being madepursuant to the Care Everywhere program and may not contain all information available regarding this patient. Last updated 18.[facility] Allergies * Codeine(Nausea and/or Vomiting) Medications * Be aware that medications may not be up to date on this document. Alwaysverify current medications with the patient. * albuterol HFA (PROAIR HFA) 108 (90 BASE) MCG/ACT inhaler(Started 07/21/2016) Inhale 2 Puffs by mouth every 4 hours as needed for Shortness of Breath, Wheezing or Cough 1 refill remaining * fluticasone furoate (ARNUITY ELLIPTA) 100 MCG/ACT inhaler Inhale 1 puff by mouth once daily Active Problems No known active problems Social History Tobacco Use Types Packs/Day Years Used Date Smoking Tobacco: Never Smokeless Tobacco: Never Sex and Gender Information Value Date Recorded Sex Assigned at Not on file Gender Identity Not on file Sexual Orientation Not on file Last Filed Vital Signs Vital Sign Reading Time Taken Comments Blood Pressure 102/70 12/30/2017 5:12 PM CDT Pulse 72 12/30/2017 5:12 PM CDT Temperature 36.6 C (97.9 F) 12/30/2017 5:12 PM CDT Respiratory Rate 14 12/30/2017 5:12 PM CDT Oxygen Saturation 99% 12/30/2017 5:12 PM CDT Inhaled Oxygen Concentration - - Weight 60.3 kg (133 lb) 12/30/2017 5:12 PM CDT Height 170.2 cm (5' 7 ) 12/30/2017 5:12 PM CDT Body Mass Index 20.83 12/30/2017 5:12 PM CDT Procedures * STREP A SCREEN - POINT OF CARE (AMB) STL(Performed 10/15/2017) Performed for Strep pharyngitis * INFLUENZA A+B - POINT OF CARE (AMB)(Performed 10/15/2017) Performed for Strep pharyngitis * STREP A SCREEN - POINT OF CARE (AMB) STL(Performed 07/21/2016) Performed for Acute pharyngitis, unspecified etiology Results * (ABNORMAL) STREP A SCREEN (10/15/2017) Only the most recent of2 resultswithin the time period is included. Strep A Rapid POCT Positive(A) Negative Strep A Internal Control Present Lot # [id number] Expiration Date [id number] Throat ENTIRE THROAT (SURFACE REGION OF NECK) / Unknown 10/15/2017 Eric Jaramillo APRN-[facility] - POINT OF CARE ORDERABLES * INFLUENZA A+B - POINT OF CARE (AMB) (10/15/2017) Influenza A Antigen Rapid Negative Negative Influenza B Antigen Rapid Negative Negative Influenza Internal Control present NEGATIVE - POSITIVE Influenza Lot Number [id number] Influenza Expiration Date Other NASOPHARYNGEAL SWAB / Unknown 10/15/2017 Eric Jaramillo RETAIL OFFICE MANAGER-MARKETING CLERK LAB - POINT OF CARE ORDERABLES Care Teams Director Of Business Continuity Relationship Specialty Start Date End Date Pamela Moulton MD [address] [place] [address] PCP - General Family Medicine 06/13/16
--- OUTSIDE RECORDS SUMMARY | 2024-12-04 13:39 | XMS_ITS | Clinical Summary ---
Author Organization [facility] Address [address] [place] [address] Care Team Providers Care 911 Emergency Dispatcher Name Role Phone Pamela Moulton MD Primary Care Provider [phone] Source Comments [facility],non-owned Affiliates and Associated Physician Practices is amultiple site organization consisting of ambulatory clinics and hospital sitesin [place], [place], [place] and [place]. This disclosure is being madepursuant to the Care Everywhere program and may not contain all information available regarding this patient. Last updated 18.[facility] Allergies Active Allergy Reactions Criticality Noted Date Comments Codeine Nausea and/or Vomiting 06/13/2016 Medications * Be aware that medications may not be up to date on this document. Alwaysverify current medications with the patient. Medication Sig Dispensed Refills Start Date End Date Status albuterol HFA (PROAIR HFA) 108 (90 BASE) MCG/ACT inhalerIndications:W heezing Inhale 2 Puffs by mouth every 4 hours as needed for Shortness of Breath, Wheezing or Cough 1 Inhaler 1 07/21/2016 Active fluticasone furoate (ARNUITY ELLIPTA) 100 MCG/ACT inhaler Inhale 1 puff by mouth once daily Active Active Problems No known active problems Social [...] Mass Index 20.83 12/30/2017 5:12 PM CDT Plan of Treatment Health Maintenance Due Date Last Done Comments LIPID TESTING 1980 MAMMOGRAM 1982 PAP SMEAR 1982 HIV SCREENING 1997 HEPATITIS C SCREENING 06/22/2000 DTAP/TDAP/TD VACCINES (1 - Tdap) 2001 HEPATITIS B VACCINE (1 of 3 - 19+ 3-dose series) 2001 COVID-19 VACCINE (1 - 2023-2 5 season) 2024 INFLUENZA VACCINE (#1) 2024 DEPRESSION SCREENING 09/21/2024 ZOSTER VACCINE (1 of 2) 2032 HIB VACCINE Aged Out No longer eligi ble based on patient's age to complete this topic HPV VACCINE Aged Out No longer eligi ble based on patient's age to complete this topic MENINGOCOCCAL (Group B) VACC INE SHARED DECISION-MAKING Aged Out No longer eligibl e based on patient's age to complete this topic MENINGOCOCCAL GROUPS A/C/Y/W VACCINE Aged Out No longer eligible b ased on patient's age to complete this topic PNEUMOCOCCAL VACCINE Aged Out No long er eligible based on patient's age to complete this topic Care Teams 911 Emergency Dispatcher Relationship Specialty Start Date End Date Pamela Moulton MD [address] [place] [address] PCP - General Family Medicine 06/13/16
--- OUTSIDE RECORDS SUMMARY | 2024-12-04 13:39 | XMS_ITS | Referral Summary ---
Author Organization [facility] Address [address] [place] [address] Care Team Providers Care Labor Relations Manager Name Role Phone Pamela Moulton MD Primary Care Provider [phone] Source Comments [facility],non-owned Affiliates and Associated Physician Practices is amultiple site organization consisting of ambulatory clinics and hospital sitesin [place], [place], [place] and [place]. This disclosure is being madepursuant to the Care Everywhere program and may not contain all information available regarding this patient. Last updated 18.[facility] Allergies Active Allergy Reactions Criticality [...] 12/30/2017 5:12 PM CDT Plan of Treatment Not on file Administered Medications Care Teams Labor Relations Manager Relationship Specialty Start Date End Date Pamela Moulton MD [address] [place] [address] PCP - General Family Medicine 06/13/16
--- OUTSIDE RECORDS SUMMARY | 2024-12-04 13:39 | XMS_ITS | Patient Health Record ---
Author Organization [facility] Address [address] [place] [address] Care Team Providers Care Barber Shop Operator Name Role Phone KenneyPamela Primary Care Provider UnavailCarlotta Fierro Unavailable [phone] [employer], Provider Unavailable Unavailab le Allergies Allergen (clinical drug ingredient) Drug/Non Drug Allergy documented on EMR Reaction Allergy Type Onset Date Status codeine Codeine nausea Drug Allergy Active Reason For Referral No Information Medications Medication SIG (Take, Route, Frequency, Duration) Notes Start Date End Date Status CETIRIZINE 10 mg 1 tab(s) orally once a day for 30 days 02/24/2024 Active BREO ELLIPTA 100 mcg-25 mcg/inh 1 puff(s) inhaled once a day for 30 days Active Azelastine HCl 137 MCG/SPRAY 2 spray(s) intranasally 2 times a day for 30 day(s) 02/24/2024 Active Albuterol Sulfate HFA 108 (90 Base) MCG/ACT 2 puff(s) inhaled every 6 hours as needed for 30 days Active Cetirizine HCl 10 MG 1 tab(s) orally once a day for 30 days 02/24/2024 Active CLARITIN 10 mg 1 tab(s) orally once a day Active Glenna Allergy 180 MG 1 tab(s) orally once a day for 30 12/10/2016 Not-Taking NURTEC ODT 75 MG 1 TAB(S) ORALLY ONCE *Please review for potential replacement for e-prescription and drug interaction check* Active Breo Ellipta 100 MCG-25 MCG/INH 1 PUFF(S) INHALED ONCE A DAY for 30 DAYS *Please review and pick correct strength-formulat ion from [employer] options. If intended option is not shown, discontinue and re-order from Quick Search* 10/01/2023 Active Breo Ellipta 100 MCG-25 MCG/INH 1 PUFF(S) INHALED ONCE A DAY for 30 DAYS *Please review and pick correct strength-formulat ion from [employer] options. If intended option is not shown, discontinue and re-order from Quick Search* Active GLENNA 24 HOUR ALLERGY 180 mg 1 tab(s) orally once a day for 30 12/10/2016 Not-Taking Fluticasone Propionate 50 MCG/ACT 2 spray(s) in each nostril 2 times a day for 30 days 02/24/2024 Active ALBUTEROL 90 mcg/inh 2 puff(s) inhaled every 6 hours as needed for 30 days Active AZELASTINE NASAL 137 mcg/inh 2 spray(s) intranasally 2 times a day for 30 day(s) 02/24/2024 Active Claritin 10 MG 1 tab(s) orally once a day Active FLUTICASONE NASAL 50 mcg/inh 2 spray(s) in each nostril 2 times a day for 30 days 02/24/2024 Active BREO ELLIPTA 100 mcg-25 mcg/inh 1 puff(s) inhaled once a day for 30 days 10/01/2023 Active Immunizations Vaccine Route Administration Date Status Comme nts NOC Tdap Unknown 01/11/2007 Administered Portal [employer] Social History Tobacco Use: Social History Observation Description Date Details (start date - stop date) Never Smoker NA - NA Smoking Smart Form: Question Answer Notes Are you a: never smoker Tobacco Control (Standard) Question Answer Notes Tobacco use: Nonsmoker Problems Problem Type SNOMED Code ICD Code Onset Dates Problem Status W/U Status Risk Notes Problem Migraine with aura (7561110) Migraine with aura, not intractable, without status migrainosus (G43.109) Active confirmed Problem Allergic rhinitis caused by pollen (disorder) (71297891) Allergic rhinitis due to pollen (J30.1) Active confirmed Problem Allergic rhinitis (88399517) Other allergic rhinitis (J30.89) Active confirmed Problem Uncomplicated mild persistent asthma (589046609) Mild persistent asthma, uncomplicated (J45.30) Active confirmed Problem Allergic contact dermatitis due to animal (cat) (dog) dander (L23.81) Active confirmed Problem Allergic rhinitis caused by animal hair and dander (264823741315475) Allergic rhinitis due to animal (cat) (dog) hair and dander (J30.81) Active confirmed Problem Chronic allergic conjunctivitis (06353912) Other chronic allergic conjunctivitis (H10.45) Active confirmed Problem Cough (14764049) Cough (R05) Active confirmed Problem Chronic sinusitis (91826564) Chronic sinusitis, unspecified (J32.9) Active confirmed Vital Signs Oximetry 100 % 02/24/2024 Blood pressure diastolic 65 mm Hg 02/24/2024 Height 67 in 02/24/2024 Blood pressure systolic 102 mm Hg 02/24/2024 Weight 143.4 lbs 02/24/2024 BMI 22.46 kg/m2 02/24/2024 Encounters Encounter Location Date Provider Diagnosis [address] [address] 03/05/2024 Provider MARIO-Reny Allergic rhinitis due to pollen J30.1 and Mild persistent asthma, uncomplicated J45.30 [facility] [address] [facility] [address] [place] [address] 02/24/2024 Carlotta Thrasher Allergic rhinitis du e to pollen J30.1 ; Mild persistent asthma, uncomplicated J45.30 ; Allergic rhinitis due to animal (cat) (dog) hair and dander J30.81 ; Allergic contact dermatitis due to animal (cat) (dog) dander L23.81 ; Other allergic rhinitis J30.89 and Other chronic allergic conjunctivitis H10.45 Assessments Encounter Date Diagnosis (ICD Code) Assessment Notes Treatment Notes Treatment Clinical Notes Section Notes 02/24/2024 Allergic rhinitis due to pollen (ICD-10 - J30.1) Mami clearly suffers from atopic disease based upon our skin testing and clinical history. Accordingly, we have introduced a new, aggressive medication regimen, discussed nasal washes and allergy-specific avoidance measures. Instructed to start Zyrtec and Flonase or Astelin. We discussed that smoke smell is not a common side effect with Breo. She will need to discuss Nurtec side effects with her PCP. Start antihistamines and nasal sprays and if no improvement in smoke smell, need ENT evaluation. 02/24/2024 Mild persistent asthma, uncomplicated (ICD-10 - J45.30) Improvement with Breo when using a few times weekly and not daily. Spirometry at last check was normal. ACT 22. Insurance would not cover Symbicort. Continue Breo and prn albuterol. Asthma action plan reviewed. 03/05/2024 Allergic rhinitis due to pollen (ICD-10 - J30.1) 03/05/2024 Mild persistent asthma, uncomplicated (ICD-10 - J45.30) 02/24/2024 Allergic rhinitis due to animal (cat) (dog) hair and dander (ICD-10 - J30.81) Follow allergen avoidance, meds and consider SCIT as an adjunctive treatment to current regimen 02/24/2024 Allergic contact dermatitis due to animal (cat) (dog) dander (ICD-10 - L23.81) 02/24/2024 Other allergic rhinitis (ICD-10 - J30.89) 02/24/2024 Other chronic allergic conjunctivitis (ICD-10 - H10.45) Given ocular signs and symptoms I encouraged allergy avoidance measures and meds as above. If symptoms persist, consider adding additional medications including intraocular antihistamine/mast cell stabilizer, PRN and consider SCIT as an adjunctive measure Plan Of Treatment Next Appt Details Provider Name:Carlotta baptiste, 01/25/2025 04:00:00 PM, [address] [facility], [address] [place] [address], [phone], Insurance Providers Payer Name Payer Address Payer Phone Subscriber Number Group Number Insured Name Patient Relationship to Insured Coverage Start Date Coverage End Date [employer] POS II [address] [place] [address] [id number] Mami Ballard Self - patient is the insured 3 Medical (General) History Medical History History ICD Code Migraine with aura, not intractable, wit hout status migrainosus G43.109 Surgical History Surgery Date(Month/Year) R knee arthroscopy 09/24/1998 L5-S1 microdiscectomy 09/22/2000 Hysterectomy (left both ovaries only) Hospitalization History Reason Date(Month/Year) Viral Meningitis 02/04/2011
--- OUTSIDE RECORDS SUMMARY | 2024-12-04 13:39 | XMS_ITS ---
Author Organization [facility] Address [address] [place] [address] Care Team Providers Care Acting Teacher Name Role Phone Pamela Moulton Primary Care Provider Carlotta Gallegos Unavailable [phone] REASON FOR VISIT Asthma follow-up Encounters Encounter Location Date Provider Diagnosis [facility] [address] [facility] [address] [place] [address] 08/24/2024 Carlotta Thrasher Plan Of Treatment Next Appt Details Provider Name:Carlotta baptiste, 01/25/2025 04:00:00 PM, [address] [facility], [address], [place], [address], Progress Notes * Mami ANNE ADOB: [birth year] (44 yo F)Acc No.[id number]:08/24/2024 Asthma F/U Patient: Clementina CHRISTIANSONMami RAPHAEL Provider: India Thrasher MD :1980 A ge:44 Y S ex:Female Date:08/24/2024 Address:[address] [place] [address] [place], [id number] Pcp:Pamela Moulton Subjective: * Chief Complaints: * 1 . Asthma follow-up. * Medical History: Objective: * Vitals: Assessment: Plan: * Treatment: * Billing Information: * Visit Code: * Procedure Codes: * Electronic signature of Alana Thrasher MD on 12/04/2024 at 01:39 PM CDT Sign off status: Pending * Provider: India Thrasher MD Date: 1 10/25/2023 Generated for Serena ramirez/Ruby/Lester on: 0 12/04/2024 01:39 PM CDT
--- OUTSIDE RECORDS SUMMARY | 2024-12-04 13:39 | XMS_ITS ---
Author Organization [facility] Address [address] [place] [address] Care Team Providers Care Cotton Picker Name Role Phone KenneyPamela Primary Care Provider UnavailCarlotta Fierro Unavailable [phone] [facility]Migration, Provider Unavailable Unavailab le Allergies Allergen (clinical drug ingredient) Drug/Non Drug Allergy documented on EMR Reaction Allergy Type Onset Date Status codeine Codeine nausea Drug Allergy Active [facility]AS[facility] VISIT [facility] Encounter Medications Medication SIG (Take, Route, Frequency, Duration) Notes Start Date End Date Status Albuterol Sulfate HFA 108 (90 Base) MCG/ACT 2 puff(s) inhaled every 6 hours as needed for 30 days Active Cari Allergy 180 MG 1 tab(s) orally once a day for 30 12/10/2016 Not-Taking NURTEC ODT 75 MG 1 TAB(S) ORALLY ONCE *Please review for potential replacement for e-prescription and drug interaction check* Active Breo Ellipta 100 MCG-25 MCG/INH 1 PUFF(S) INHALED ONCE A DAY for 30 DAYS *Please review and pick correct strength-formulat ion from [employer] options. If intended option is not shown, discontinue and re-order from Quick Search* 10/01/2023 Active Breo Ellipta 100 MCG-25 MCG/INH 1 PUFF(S) INHALED ONCE A DAY for 30 DAYS *Please review and pick correct strength-formulat ion from Medispan options. If intended option is not shown, discontinue and re-order from Quick Search* Active Azelastine HCl 137 MCG/SPRAY 2 spray(s) intranasally 2 times a day for 30 day(s) 02/24/2024 Active Cetirizine HCl 10 MG 1 tab(s) orally once a day for 30 days 02/24/2024 Active Fluticasone Propionate 50 MCG/ACT 2 spray(s) in each nostril 2 times a day for 30 days 02/24/2024 Active Claritin 10 MG 1 tab(s) orally once a day Active Encounters Encounter Location Date Provider Diagnosis [address] [address] 03/05/2024 Provider LanieZ-Reny Allergic rhinitis due to pollen J30.1 and Mild persistent asthma, uncomplicated J45.30 Assessments Encounter Date Diagnosis (ICD Code) Assessment Notes Treatment Notes Treatment Clinical Notes Section Notes 03/05/2024 Allergic rhinitis due to pollen (ICD-10 - J30.1) 03/05/2024 Mild persistent asthma, uncomplicated (ICD-10 - J45.30) Plan Of Treatment Medication Medication Name Sig Start Date Stop Date Notes Albuterol Sulfate HFA 108 (90 Base) MCG/ACT 2 puff(s) inhaled every 6 hours as needed for 30 days Breo Ellipta 100 MCG-25 MCG/INH 1 PUFF(S) INHALED ONCE A DAY for 30 DAYS *Please review and pick correct strength-formulation from [employer] options. If intended option is not shown, discontinue and re-order from Quick Search* Azelastine HCl 137 MCG/SPRAY 2 spray(s) intranasally 2 times a day for 30 day(s) 02/24/2024 Cetirizine HCl 10 MG 1 tab(s) orally onc e a day for 30 days 02/24/2024 Fluticasone Propionate 50 MCG/ACT 2 spray(s) in each nostril 2 times a day for 30 days 02/24/2024 Next Appt Details Provider Name:Carlotta baptiste, 01/25/2025 04:00:00 PM, [address] [facility], [address], [place], [address], Progress Notes * Mami ANNE ADOB: [birth year] (44 yo F)Acc No.[id number]:03/05/2024 Patient: Mami CAMPOS Provider: Shira Oglesby :1980 A ge:43 Y S ex:Female Date:03/05/2024 Address:[address] [place] [address] , [place] , [id number] Pcp:Pamela Moulton Subjective: * Chief Complaints: * 1 . [facility]. * Medical History: * Medications: T aking Claritin 10 MG Tablet 1 tab(s) orally once a day , Taking NURTEC ODT 75 MG TABLET, DISINTEGRATING 1 TAB(S) ORALLY ONCE , Notes to Pharmacist: *Please review for potential replacement for e-prescription and drug interaction check*, Taking Breo Ellipta 100 MCG-25 MCG/INH POWDER 1 PUFF(S) INHALED ONCE A DAY , Notes to Pharmacist: *Please review and pick correct strength[facility]formulation [facility]. If intended option is not shown, discontinue and re-order from Quick Search*, Not-Taking/PRN Cari Allergy 180 MG Tablet 1 tab(s) orally once a day * Allergies: C odeine: nausea. Objective: * Vitals: Assessment: * Assessment: 1. M ild persistent asthma, uncomplicated - J45.30 (Primary) 2 . A llergic rhinitis due to pollen - J30.1 Plan: * Treatment: 2. A llergic rhinitis due to pollen Start Cetirizine HCl Tablet, 10 MG, 1 tab(s), orally, once a day, 30 days, 30, Refills 0; S tart Azelastine HCl Solution, 137 MCG/SPRAY, 2 spray(s), intranasally, 2 times a day, 30 day(s), 1, Refills 0; S tart Fluticasone Propionate Suspension, 50 MCG/ACT, 2 spray(s), in each nostril, 2 times a day, 30 days, 1, Refills 0. * Billing Information: * Visit Code: * Procedure Codes: * Electronic signature of Prov donnar ZZ-Migration on 12/04/2024 at 01:39 PM CDT Sign off status: Pending * Provider: Shira Oglesby Date: 0 03/05/2024 Generated for Serena ramirez/Faxing/eTransmitting on: 0 12/04/2024 01:39 PM CDT
[2024-12-04 13:44] VITALS: BP 106/66; PULSE 60; RESP 18; TEMP 36.8; O2SAT 99
--- NOTE | 2024-12-04 14:14 | ED_ITS ---
HPI - Extremity Injury (Lower) General Chief Complaint: Extremity Injury, Lower Stated Complaint: lt toe injury Source: patient and RN notes reviewed Mode of arrival: ambulatory Limitations: no limitations History of Present Illness HPI Narrative: Patient presents today complaining of a left 1st toe injury. Last night she dropped a bottle of wine on the toe. She has tried ibuprofen and Benadryl for the discomfort and rates the pain 1/10 at rest with 6/10 with weight-bearing. Denies numbness or tingling. She does have a skin injury at the base of the toenail that is still oozing some blood. She is unsure of the date of her last tetanus vaccine. Related Data Allergies Allergy/AdvReac Type Severity Reaction Status Date / Time codeine AdvReac Mild Nausea and Verified 12/04/24 13:44 Vomiting surgical glue Allergy Severe Hives Uncoded 10/05/24 09:13 Review of Systems Review of Systems: CONSTITUTIONAL: Denies body aches, fever, chills, or sweats. EYES: Denies visual changes, redness, or discharge. ENT: Denies rhinorrhea, congestion, sore throat, or otalgia. CARDIOVASCULAR: Denies chest pain, palpitations, or edema. RESPIRATORY: Denies cough or dyspnea. GASTROINTESTINAL: Denies abdominal pain, nausea, vomiting, or diarrhea. GENITOURINARY: Denies dysuria or hematuria. SKIN: Denies rash, itching, or wounds. MUSCULOSKELETAL: Denies back pain. + left toe injury NEUROLOGIC: Denies headache, numbness, tingling, or weakness. PSYCH: Denies depression or anxiety. [facility] Past Medical History Medical History Upper respiratory tract infection Mild intermittent asthma without complication Epigastric pain Chronic rhinitis Chronic constipation Viral meningitis Asthma Surgical History Surgical History H/O bilateral salpingectomy History of robot-assisted laparoscopic hysterectomy H/O knee surgery H/O microdiscectomy l5,f1 Family History Family History Mother Patient's mother is in good health Father Patient's father is in good health Skin cancer Sibling Seizure Grandparent Diabetes mellitus COPD (chronic obstructive pulmonary disease) Heart disease Cancer Other Family history of cardiovascular disease Hypertension Social History Social History Smoking status: Never smoker Second hand tobacco smoke exposure: No Alcohol intake: current Substance use: never Lack of Transportation: No Lack of Food: Never True Current Housing: I Have Housing Concerned About Future Housing: No Difficulty Paying Gas/Electric Bills: No Difficulty Paying for Meds: No Currently Unemployed: No Education: Associate Degree Difficulty w/ Childcare or Family Care: No Living arrangements: with family Occupation/Education: occupation 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 Please see nursing chart for further information. There is no relevant family history pertinent to the presenting complaint Exam Narrative: GENERAL: Well-appearing, well-nourished, and in no acute distress. HEAD: Normocephalic, atraumatic. EYES: EOMI. No redness or drainage. Conjunctivae normal. ENT: Mucous membranes pink and moist. NECK: Normal AROM. CHEST: No respiratory distress. EXTREMITIES: Left great toe: Mildly edematous with ecchymosis on the plantar aspect. Tender to palpation. Patient has some slight subungual hematoma proximally, but remainder of the toenail is unable to be visualized due to thick nail Austrian. Patient has superficial wound that continues to ooze scant amount of blood at the base of the nail. Distal sensation intact. Capillary refill normal. SKIN: Warm, dry, no rash. Capillary refill normal. Normal skin turgor. NEURO: No focal deficits. Alert and oriented x3. Gait steady. PSYCH: Normal affect. No signs of depression or anxiety. Course Course Level of Care: Express Care Visit Vital Signs Vital signs: Vital Signs Temperature 98.3 F 12/04/24 13:44 Pulse Rate 60 12/04/24 13:44 Respiratory Rate 18 12/04/24 13:44 Blood Pressure 106/66 12/04/24 13:44 Pulse Oximetry 99 12/04/24 13:44 Oxygen Delivery Room Air 12/04/24 13:44 Temperature 98.3 F 12/04/24 13:44 Pulse Rate 60 12/04/24 13:44 Respiratory Rate 18 12/04/24 13:44 Blood Pressure 106/66 12/04/24 13:44 Pulse Oximetry 99 12/04/24 13:44 Oxygen Delivery Room Air 12/04/24 13:44 Reviewed MDM - Extremity Injury (Lower) MDM Narrative Medical decision making narrative: X-ray shows distal phalanx fracture. Patient's wound has been cleansed and dressed. Her toes have been lakshmi-taped and she has been placed in a postop shoe. She declines crutches. Recommend follow-up with orthopedics or podiatry. Anticipatory guidance given. Tetanus shot updated Differential Diagnosis Differential diagnosis: Likely fracture of toe and other (Toe contusion, abrasion, subungual hematoma) Imaging Data Radiologist's impression: ITS Impressions Toe X-Ray 12/04/24 14:09 IMPRESSION: Fracture of the distal phalanx of the left big toe. Critical Care Time Critical Care Time Critical Care Time: No Discharge Plan Discharge Clinical Impression: Fracture of toe of left foot Qualifiers: Encounter type: initial encounter Toe: great toe Fracture type: closed Phalanx: distal Fracture alignment: nondisplaced Qualified Code(s): S92.425A - Nondisplaced fracture of distal phalanx of left great toe, initial encounter for closed fracture Patient Disposition: Home, Self-Care Condition: Stable Instructions: Toe Fracture (ED) Additional Instructions: Your x-ray shows a fracture of your toe. You have been placed in a hard-soled shoe. Please use this while walking. Please follow-up with Podiatry or Orthopedics for further evaluation of your toe fracture. Please keep the skin injury you have on your toe clean and dry. Monitor for any signs of infection such as redness, drainage, increased pain, and see your doctor if you note any. Elevate and ice your foot. Take Tylenol or ibuprofen for pain. Patient Language: Nigerian Prescriptions: No Action fluticasone furoate-vilanterol [Breo Ellipta] 100-25 mcg/dose blister with device 1 inh inhalation DAILY Qty: 60 0RF albuterol sulfate 90 mcg/actuation HFA aerosol inhaler See Rx Instructions .ROUTE .COMPLEX Qty: 8.5 5RF Dose Instruction: INHALE 1 PUFF BY MOUTH EVERY 4 HOURS NEEDED Rx Instructions: INHALE 1 PUFF BY MOUTH EVERY 4 HOURS NEEDED Nurtec ODT 75 mg tablet,disintegrating 75 mg PO DAILY PRN (Reason: migraine headache) Qty: 10 6RF Rx Instructions: as a single dose Follow-up/Referrals: Pamela Moulton MD [Primary Care Provider] - Dale Rosenthal MD [Physician] - Time of Disposition: 14:19
[2024-12-04] MEDS: TETANUS,DIPHTHERIA,AC PERTUSSIS ADULT (0.5 ML) BOOSTRIX IM (14:32)
== END 2024-12-04 14:38 | disposition home or self-care (01) ==
PROVIDERS: Emergency Provider Nurse Practitioner; PCP Family Medicine
DX: S92.425A Nondisplaced fracture of distal phalanx of left great toe, initial encounter for closed fracture (principal); W20.8XXA Other cause of strike by thrown, projected or falling object, initial encounter; Z23 Encounter for immunization; J45.909 Unspecified asthma, uncomplicated; Z86.61 Personal history of infections of the central nervous system
CPT/HCPCS: 73660; 90471; 90715; 99214; G0463